=== PATIENT | female | born 2000 | race Caucasian/White ===

== ENCOUNTER 2022-07-27 10:49 | Inpatient (IN) ==
[2022-07-27] MEDS ORDERED: OXYTOCIN 30 UNITS/500 ML BAG IV PRN ×2 (12:35)
[2022-07-27] MEDS ORDERED: LIDOCAINE 1% LOCAL 20 ML VIAL INFIL PRN (12:35)
--- NOTE | 2022-07-27 12:41 | History & Physical Report ---
Date of Service July 27, 2022 Assessment & Plan (1) Post term over 40 weeks: (2) Encounter for induction of labor: Plan Admit, iv, labs. begin pitocin induction/arom. ? if arom completed, will monitor. fhts categ 1. pt denies ?s, ready to proceed. Admission and Anticipated Discharge Date Admission Date: July 27, 2022 History of Present Illness Chief Complaint: planned induction Primary Care Provider: Gricelda Geiger, DO 22yo at 40 6/7 wks presents to L&D for above cc. She denies rom, vb. +FM. No regular ctx. PNC c/b 1. Obesity 2. +factor V leiden heterozygous, never had dvt, saw hematology, advised lovenox in but cessated on her own, plan pp lovenox with c/s or any complicated vaginal delivery per hematology f/u note PNL rh pos, ri, gbs neg. OBH: g1 GYNH: nl stds Allergies Allergy/AdvReac Type Severity Reaction Status Date / Time nickel AdvReac Intermediate Rash Verified 07/26/22 14:53 Home Medications Medication Instructions Recorded Confirmed Type No Known Home Medications 06/29/22 07/26/22 History Patient History Medical History (Updated 07/27/22 @ 13:25 by Setphania Naranjo RN) Factor 5 Leiden mutation, heterozygous No chronic problems Scoliosis Varicella vaccination Surgical History History of removal of cyst L hip (topically) Family History Mother Factor V Leiden Sister Factor V Leiden Grandmother (Maternal) Factor V Leiden Other No significant family history Denies family history of Ovarian cancer Breast cancer Colorectal cancer Social History Smoking Status: Never smoker Hx Alcohol Use: No Hx Substance Use: No marital status: Single marital status details: genesis Sargent (23) [phone] Current Living Situation: Significant Other Current Living Situation Comment: lives with fob, dogs, cat-fob changing litter current occupational status: employed current occupation: [employer] Feels Safe at Home: Yes Review of Systems as per Subjective / HPI Physical Exam Constitutional: WD/WN, vitals as above Respiratory: normal respiratory effort, lungs clear to auscultation Cardiovascular: Rate/Rhythm: regular rate and regular rhythm Gastrointestinal (Abdomen): soft gravid nt Musculoskeletal: no edema nontender calves Neurologic: grossly normal Psychiatric: A+Ox3, euthymic affect Genitourinary: OB Exam Abdomen: + vertex and + estimated weight (8-9#) Manual OB Exam: + cervical dilation 3 cm, + cervical effacement 90%, + station -2 (mid, soft) and + amniotic fluid (attempted arom x 2, ? result) OB Exam Monitor Tracing: + external FHT monitor used, + external uterine monitor used, + category I and + normal FHT variability Coding Level of Care Code None Diagnoses Post term over 40 weeks O48.0 Encounter for induction of labor Z34.90
[2022-07-27] MEDS: LACTATED RINGER'S 1,000 ML IV PRN ×3 (13:12→22:00)
[2022-07-27 13:17] LABS: Hemoglobin 12.4 g/dl (12.0-16.0); Mean Corpuscular Hemoglobin 28.6 pg (25.0-34.0); Mean Corpuscular Hgb Conc 33.5 g/dL (32.0-36.0); Mean Corpuscular Volume 85.3 fL (80.0-100.0); Mean Platelet Volume 11.6 fL (9.4-12.3); Platelet Count 254 K/uL (130-400); RDW Coefficient of Variation 13.2 % (11.5-14.5); RDW Standard Deviation 41.3 fL (36.4-46.3); Red Blood Count 4.34 M/uL (3.93-5.22); White Blood Count 11.95 K/ul (4.8-10.8)
[2022-07-27] MEDS ORDERED: ePHEDrine sulfate 50 MG/ML AMP ONE (16:48)
[2022-07-27] MEDS ORDERED: LIDOCAINE 2%/EPINEPHRINE 1:200,000 20 ML SDV ONE (16:49)
[2022-07-27] MEDS ORDERED: BUPIVACAINE 0.25% 30 ML VIAL ONE (16:49)
[2022-07-27] MEDS ORDERED: fentaNYL citrate 100 MCG/2 ML VIAL ONE (16:49)
[2022-07-27] MEDS ORDERED: SODIUM CHLORIDE 0.9% INJ 10 ML VIAL ONE (16:49)
[2022-07-27] MEDS ORDERED: fentaNYL 2MCG/ML ROPIVACAINE 1.25MG/ML 100 ML BAG EPI ONE (16:50)
--- NOTE | 2022-07-27 17:05 | Anesthesiology Consultation ---
Date of Service July 27, 2022 Assessment & Plan Chart Review Chart Review: Acceptable Risk for Labor Epidural Consults Requested none ASA ASA3 Proposed Anesthesia Anesthesia Type: Labor Epidural Risk / Benefits Reviewed With: PT / POA / Parent / Guardian, Accepts Plan and Informed Consent Obtained History Height/Weight Height: 5 ft 5 in Weight: 139.717 kg Allergies Allergy/AdvReac Type Severity Reaction Status Date / Time nickel AdvReac Intermediate Rash Verified 07/26/22 14:53 Medications Home Medications Medication Instructions Recorded Confirmed Last Taken No Known Home Medications 06/29/22 07/26/22 Unknown Active Medications Generic Name Dose Route Start Last Admin Trade Name Freq PRN Reason Stop Dose Admin Oxytocin 30 units in 500 mls @ 7 mls/hr 07/27/22 12:35 07/27/22 16:00 Pitocin IV 07/29/22 12:34 0.54 units/hr .Q24H PRN 9 mls/hr Labor Induction/Augmentation Titration Protocol 0.42 UNITS/HR Lactated Ringer's 1,000 mls @ 125 mls/hr 07/27/22 12:35 07/27/22 16:52 Lr IV 07/29/22 12:34 125 mls/hr .Q8H PRN Administration L&D Protocol Protocol Past Medical History Medical History Factor 5 Leiden mutation, heterozygous No chronic problems Scoliosis Varicella vaccination Exercise / Class Metabolic Activity II 4-5 Yardwork/Stairs/Walk up hill Past Family History Family History Mother Factor V Leiden Sister Factor V Leiden Grandmother (Maternal) Factor V Leiden Other No significant family history Denies family history of Ovarian cancer Breast cancer Colorectal cancer Past Surgical History Surgical History History of removal of cyst L hip (topically) Past Anesthesia History No Hx of Anesthesia Complications and No Family Hx of Anesthesia Complications History of PONV No Hx of PONV and No Hx of Motion Sickness Social History Smoking Status: Former smoker tobacco type: e-cigarettes Hx Alcohol Use: No Hx Substance Use: No substance use type: does not use Physical Exam Vital Signs Last Vital Signs Temp 98.1 F 07/27/22 15:29 Pulse 94 H 12/21/22 17:01 Resp 22 07/27/22 13:28 BP 123/58 L 07/27/22 15:31 Pulse Ox 98 07/27/22 17:01 ENMT Mouth: no dentition abnormality Thyromental Distance: > or= 3.5 Finger Breadths Mallampati Class: II Neck normal visual inspection Respiratory normal respiratory effort Auscultation: lungs clear to auscultation bilaterally Cardiovascular Rate/Rhythm: regular rate and regular rhythm Testing Laboratory Results 07/27/22 12:57
[2022-07-27] MEDS ORDERED: NALOXONE HCL 1 MG in SODIUM CHLORIDE 0.9% 1000ML 1,000 ML IV PRN (17:28)
[2022-07-27] MEDS ORDERED: ePHEDrine sulfate 50 MG/ML AMP IV PRN (17:28)
[2022-07-27] MEDS ORDERED: NALOXONE HCL 0.4 MG/1 ML VIAL/CARP IV PRN (17:28)
[2022-07-27] MEDS ORDERED: diphenhydrAMINE 50 MG/ML VIAL IV PRN (17:28)
[2022-07-27] MEDS ORDERED: ONDANSETRON INJ 2 MG/ML 2 ML VIAL IV PRN (17:28)
[2022-07-27] MEDS ORDERED: NALBUPHINE HCL INJ 10 MG/ML AMP IV PRN (17:28)
[2022-07-27] MEDS ORDERED: fentaNYL 2MCG/ML ROPIVACAINE 1.25MG/ML 100 ML BAG EPI PRN (17:28)
--- NOTE | 2022-07-27 18:52 | Labor Progress Brief Note ---
Date of Service July 27, 2022 Subjective pt comfortable with epidural Assessment & Plan (1) Encounter for induction of labor: (2) Obesity affecting : (3) Post term over 40 weeks: Plan continue with pitcoin to keep labor pattern regular. fhts categ 1. Admission and Anticipated Discharge Date Admission Date: July 27, 2022 Physical Exam Genitourinary: Manual OB Exam: + cervical dilation (3-4cm per nurse) OB Exa m Monitor Tracing: + external FHT monitor used, + external uterine monitor used (Q2), + category I and + normal FHT variability Results & Data ([facility]) Vital Signs (Past 12 Hours) Vital Signs Temp Pulse Resp BP Pulse Ox 07/27/22 13:28 98.2 F 108 H 22 123/78 07/27/22 18:46 96 07/27/22 18:46 68 07/27/22 18:41 96 07/27/22 18:41 73 07/27/22 18:39 79 07/27/22 18:39 126/72 07/27/22 18:36 97 07/27/22 18:36 88 07/27/22 18:31 98 07/27/22 18:31 75 07/27/22 18:26 96 07/27/22 18:26 69 07/27/22 18:24 62 07/27/22 18:24 142/89 H 07/27/22 18:21 97 07/27/22 18:21 68 07/27/22 18:16 97 07/27/22 18:16 77 07/27/22 18:11 97 07/27/22 18:11 73 07/27/22 18:09 67 07/27/22 18:09 152/90 H 07/27/22 18:06 97 07/27/22 18:06 67 07/27/22 18:01 97 07/27/22 18:01 77 07/27/22 17:56 98 07/27/22 17:56 76 07/27/22 17:55 80 07/27/22 17:55 143/89 H 07/27/22 17:51 97 07/27/22 17:51 71 07/27/22 17:49 68 07/27/22 17:49 139/80 07/27/22 17:46 97 07/27/22 17:46 67 07/27/22 17:43 74 07/27/22 17:43 143/79 H 07/27/22 17:41 97 07/27/22 17:41 77 07/27/22 17:39 71 07/27/22 17:39 141/79 H 07/27/22 17:36 99 07/27/22 17:36 72 07/27/22 17:31 98 07/27/22 17:31 73 07/27/22 17:32 76 07/27/22 17:32 144/74 H 07/27/22 17:30 82 07/27/22 17:30 148/79 H 07/27/22 17:28 74 07/27/22 17:28 139/77 07/27/22 17:26 98 07/27/22 17:26 73 07/27/22 17:26 67 07/27/22 17:26 149/82 H 07/27/22 17:21 98 07/27/22 17:21 88 07/27/22 17:22 96 H 07/27/22 17:22 147/90 H 07/27/22 17:20 78 07/27/22 17:20 145/85 H 07/27/22 17:11 99 07/27/22 17:11 83 07/27/22 17:06 98 07/27/22 17:06 83 07/27/22 17:01 98 07/27/22 17:01 94 H 07/27/22 15:31 77 07/27/22 15:31 123/58 L 07/27/22 15:29 98.1 F 07/27/22 13:51 97 07/27/22 13:52 94 07/27/22 13:51 83 07/27/22 13:52 80 07/27/22 13:46 96 07/27/22 13:46 82 07/27/22 13:41 95 07/27/22 13:42 93 07/27/22 13:41 81 07/27/22 13:42 80 07/27/22 12:41 98.2 F 108 H 22 123/78 Coding Level of Care Code None Diagnoses Encounter for induction of labor Z34.90 Obesity affecting O99.210 Post term over 40 weeks O48.0
[2022-07-27] MEDS ORDERED: SODIUM CHLORIDE 0.9% 250 ML IV PRN (18:55)
[2022-07-28] MEDS ORDERED: fentaNYL citrate 100 MCG/2 ML VIAL INT SPINAL STA (00:43)
[2022-07-28] MEDS ORDERED: fentaNYL citrate 100 MCG/2 ML VIAL ONE (00:49)
[2022-07-28] MEDS ORDERED: BUPIVACAINE 0.25% 30 ML VIAL ONE (00:50)
--- NOTE | 2022-07-28 01:06 | Communication Note ---
Date of Service: July 28, 2022 The patient stated having increased labor pains. I bolus the epidural with 50mcg fentanyl and 4 mL of 0.25% bupivacaine. The patient stated that her labor pains were improved. VSS throughout.
[2022-07-28] MEDS ORDERED: miSOPROStoL 200 MCG TAB ONE (06:18)
--- NOTE | 2022-07-28 06:19 | Delivery Summary ---
Vaginal Delivery Summary Date of Service July 28, 2022 Vaginal Delivery Summary and 2nd Degree LAC The patient dilated to complete and pushed to deliver a viable male infant Apgars 8 and 8 via over 2nd degree perineal laceration to anterior shoulder. Mouth and nose bulb suctioned at perineum. Loose nuchal x 1 reduced. Remaining shoulders and body delivered with ease. Infant was vigorous and crying at . Cord clamped at 30 seconds of life and to maternal abdomen where the cord was then doubly clamped and cut. Placenta delivered spontaneously and intact, three-vessel cord. Hemostasis achieved with dilute pitocin and uterine massage and drainage of the bladder for approximately 300 cc under sterile conditions and rectal cytotec. More significant bleeding noted from vaginal lacerations in a 'V' shape that was constrolled with sutures of 3-0 vicryl. Remainder of laceration repaired in routine fashion with 3-0 vicryl. Cervix and sulci intact. EBL 600 cc. Mother and baby stable in recovery. Will recommend pp lovenox to patient due to risk factors. [facility] Vaginal Delivery Charge Delivery Type Details: and 2nd Degree LAC
--- NOTE | 2022-07-28 07:17 | Communication Note ---
Date of Service: July 28, 2022 spoke with pharmacist who recommends holding dose until 12hr from removal of epidural catheter. ordered for tonight at 8pm to start. pt aware.
[2022-07-28] MEDS ORDERED: BENZOCAINE 20% AER SPR 82.5 GM CAN EXT PRN (07:23)
[2022-07-28] MEDS ORDERED: oxyCODONE/ACETAMINOPHEN 5mg/325mg TAB PO PRN (07:23)
[2022-07-28] MEDS ORDERED: DIPHTHERIA/TETANUS/PERTUSSIS 0.5 ML SYR/VIAL IM ONE (07:23)
[2022-07-28] MEDS ORDERED: OXYTOCIN 30 UNITS/500 ML BAG IV PRN (07:23)
[2022-07-28] MEDS ORDERED: OXYTOCIN 20 UNITS in LACTATED RINGER'S 1,000 ML IV SCH (07:23)
[2022-07-28] MEDS ORDERED: HYDROCORTISONE ACETATE 25 MG SUPP PR PRN (07:23)
[2022-07-28] MEDS ORDERED: miSOPROStoL 200 MCG TAB PR ONE (07:23)
[2022-07-28] MEDS ORDERED: bisacodyL 10 MG SUPP PR PRN (07:23)
--- NOTE | 2022-07-28 07:34 | Anesthesia Procedure Note ---
Date of Service July 28, 2022 Anesthesia Post Epidural Note Vital Signs Vital Signs: Temp Pulse Resp BP Pulse Ox 37.1 C 131 H 18 117/68 92 07/28/22 06:30 07/28/22 07:31 07/28/22 06:45 07/28/22 07:31 07/28/22 05:40 Notes Mental Status: alert / awake / arousable Nausea / Vomiting: adequately controlled Pain: adequately controlled Airway Patency, RR, SpO2: stable & adequate BP & HR: stable & adequate Hydration State: stable & adequate Neuraxial Anesthesia: was administered and sensory block is resolving Anesthetic Complications: no major complications apparent and Pt Satisfied with anesthetic care Epidural: Removed without complications and With tip intact
[2022-07-28] MEDS: IBUPROFEN 600 MG TAB PO PRN ×3 (09:06→20:26)
[2022-07-28] MEDS: PRENATAL VITAMIN 1 TAB PO SCH (09:06)
[2022-07-28] MEDS: DOCUSATE SODIUM 100 MG CAP PO SCH ×2 (09:07→20:26)
[2022-07-28] MEDS ORDERED: SODIUM CHLORIDE 0.9% 250 ML IV PRN (09:40)
[2022-07-28] MEDS: ENOXAPARIN INJ 40 MG/0.4 ML SYR SQ SCH (20:23)
[2022-07-29] MEDS: IBUPROFEN 600 MG TAB PO PRN ×5 (03:07→23:49)
[2022-07-29] MEDS: ACETAMINOPHEN 325 MG TAB PO PRN (04:07)
--- NOTE | 2022-07-29 06:00 | Obstetrical Progress Note ---
Date of Service July 29, 2022 Assessment & Plan (1) care following vaginal delivery: (2) Factor V Leiden: Plan - Overall, feeling well and eating well today - feeding going well without concern - Urinating and passing gas appropriately - Ambulating well in room - Pain controlled w/ Ibuprofen - Hgb 7.2 on 07/29 (patient asymptomatic, follow) - Vitals stable and wnl - Factor 5 Leiden: Hematology recommending Lovenox PP - Routine PP care progressing well - Anticipate discharge tomorrow - Recommending f/u outpatient in 6 weeks Admission and Anticipated Discharge Date Admission Date: July 27, 2022 Supervising Physician Co-Signing Physician Notes Resident Physician Supervision Note: I was present with Dr. Dr. Lopez during the history and exam. I discussed the case with the resident and agree with the findings and plan as documented in the note. Any exceptions or clarifications are listed here: [None] Documented By: Juvenal Morales MD, FACOG Subjective Cal is a 22F who is PPD #1 following vaginal delivery at 40 6/7. She reports feeling well overall this morning. - Ambulation - well throughout room - Voiding/Romero - independent voids, no dysuria or pressure - Gas/Stool - passing gas, no bowel movement - Diet - regular, no nausea or emesis - Lochia - diminishing, light amount - Infant Feeding Type - breast feeding - Pain Level - 2/10, controlled with Ibuprofen Review of Systems - Denies fever, chills, sweats - Denies shortness of breath, difficulty breathing, chest pain, palpitations, chest pressure. - Denies breast pain. - Denies dysuria. - Denies headache or changes in vision. Physical Exam Physical Exam: General: Alert, oriented. No acute distress. Cardiac: RRR, normal S1/S2, no murmurs/rubs/gallops. Respiratory: Non-labored, CTAB, no wheezes/rales/rhonchi. Symmetric chest rise. Abdomen: Soft, nontender, nondistended. Bowel sounds present. Uterus: Uterine fundus firm, palpable 3 cm below umbilicus. Lower Extremities: No lower extremity edema or swelling. No deep calf pain. Harvey's negative bilaterally. Results & Data ([facility]) Vital Signs (Past 12 Hours) Vital Signs Temp Pulse Resp BP Pulse Ox O2 Del Method 07/29/22 03:57 36.8 C 82 16 96/67 L 96 Room Air 07/28/22 23:20 36.8 C 86 16 105/65 98 Room Air 07/28/22 20:15 36.8 C 93 H 20 108/62 99 Room Air Resident Activity Tracking Resident Involvement: Resident Care Provided Care Provided: OB Delivery
[2022-07-29 06:46] LABS: Hematocrit (blood only) 21.2 % (34.1-44.9); Hemoglobin 7.2 g/dl (12.0-16.0)
[2022-07-29] MEDS: PRENATAL VITAMIN 1 TAB PO SCH (08:28)
[2022-07-29] MEDS: DOCUSATE SODIUM 100 MG CAP PO SCH ×2 (08:28→20:55)
[2022-07-29] MEDS: ENOXAPARIN INJ 40 MG/0.4 ML SYR SQ SCH ×2 (09:47→16:35)
[2022-07-30 07:15] LABS: Hematocrit (blood only) 21.2 % (34.1-44.9)
--- NOTE | 2022-07-30 07:24 | Obstetrical Progress Note ---
Date of Service July 30, 2022 Assessment & Plan (1) care following vaginal delivery: (2) Factor V Leiden: Plan - Overall, feeling well and eating well today - Infant feeding going well without concern - Urinating and passing gas appropriately - Ambulating well in room - Pain controlled w/ Ibuprofen - Hgb 7.2 --> 7.0 tolerating well - Vitals stable and wnl - Factor 5 Leiden: Lovenox BID x6 weeks per heme, Rx sent, patient has been minimally compliant per report but encouraged to use Rx - Routine PP care progressing well - discharge today - Recommending f/u outpatient in 6 weeks Subjective Ambulation: ambulating normally Voiding: no voiding problems Passing Gas:: Yes Diet Tolerance:: regular diet Lochia:: Small Feeding Type:: bottle feeding Physical Exam Constitutional WD/WN, vitals as above Eyes PERRL, conjunctivae normal, anicteric sclerae Neck normal visual inspection Respiratory normal respiratory effort and able to speak in complete sentences; no respiratory distress and no labored breathing Cardiovascular Rate/Rhythm: regular rate and regular rhythm Extremities: no edema Chest (Breasts) Chest: normal inspection of chest Gastrointestinal (Abdomen) Inspection/Auscultation: abdomen normal to inspection Soft, postgravid Psychiatric A+Ox3, euthymic affect Genitourinary OB Exam Abdomen: + fundal height Fundus: + firm and + relation to umbilicus (fundus just below umbilicus); not tender Results & Data ([facility]) Vital Signs (Past 12 Hours) Vital Signs Temp Pulse Resp BP Pulse Ox O2 Del Method 07/29/22 23:30 98.6 F 93 H 18 99/63 L 97 Room Air
[2022-07-30] MEDS: IBUPROFEN 600 MG TAB PO PRN (07:28)
[2022-07-30] MEDS: DOCUSATE SODIUM 100 MG CAP PO SCH (07:28)
[2022-07-30] MEDS: PRENATAL VITAMIN 1 TAB PO SCH (07:28)
[2022-07-30] MEDS: ACETAMINOPHEN 325 MG TAB PO PRN (07:29)
[2022-07-30] MEDS: ENOXAPARIN INJ 40 MG/0.4 ML SYR SQ SCH (07:55)
== END 2022-07-30 10:40 | disposition home or self-care (01) | DRG 806 ==
LOC: 4S1 12:11 → 4E1 07-28 09:58
DX: O99.12 Other diseases of the blood and blood-forming organs and certain disorders involving the immune mechanism complicating childbirth; O48.0 Post-term pregnancy; Z3A.41 41 weeks gestation of pregnancy; O70.1 Second degree perineal laceration during delivery; Z37.0 Single live birth; O99.214 Obesity complicating childbirth; D68.2 Hereditary deficiency of other clotting factors; O69.81X0 Labor and delivery complicated by cord around neck, without compression, not applicable or unspecified

== ENCOUNTER 2024-01-16 16:57 | Inpatient (IN) ==
--- NOTE | 2024-01-16 18:03 | History & Physical Report ---
Date of Service January 16, 2024 Assessment & Plan (1) 36 weeks gestation of : (2) Obesity affecting : (3) Factor V Leiden: (4) Oligohydramnios: (5) Cerebral ventriculomegaly of fetus affecting care of mother: Plan Discussion held with patient about findings in office and guidelines for delivery regarding oligohydramnios, has range of 36 0/7 to 37 6/7 wks. Also new finding of dilated ventricle in brain of fetus. Spoke to lubrication worker peds and they do not feel concern for delivery locally with evaluation of as long as patient understands limits of care here locally and always risk for transfer. Then spoke to patient to let her know my plan to call MFM at [facility] and ask them about concerns re: ventriculomegaly and recs for delivery with her oligo at this ega. She expressed desire to deliver locally if deemed ok by mfm and very much aware of possible need for transfer of baby cannot be predicted. Spoke to Graciela Benitez MFM fellow at [facility] and reviewed all. She recommended I evaluate pt for PROM and agreed that even though could delay delivery due to oligo if desired, new onset of ventriculomegaly would make sense to plan induction now. MFM did not see any compelling reason for pt to be sent to [place] for delivery with understanding that baby may need transfer, unable to predict, all already d/w pt. PROM ruled out. GBS unknown and specimen obtained and will plan PCN now. Cervical balloon placed and will start pitocin and plan arom when tae ropriate. Patient and partner agree with all and all explained and desire to proceed with induction of labor here at [facility]. Admit orders placed, labs, iv, betamethasone now. Will allow dinner and then get pitocin started. Patient does agree with plan to use lovenox pp. History of Present Illness Chief Complaint: oligohydramnios, new onset unilateral ventriculomegaly Primary Care Provider: Gricelda Geiger, DO 23yo at 36 4/7wks ega presents to LD from office with oligohydramnios and new onset unilateral ventriculomegaly. She was on monitor for obesity and had reactive nst. She did have growth u/s today as well and efw>98% and right cerebral ventricle noted to be 14mm. She has had serial growth u/s and not noted previously. Her is complicated by 1. Factor V Leiden heterozygote, saw m gmg and did not plan lovenox during but plans for 6wk pp 2. Obesity, getting nsts, growth us and plan for delivery by due date. 3. New onset oligohydramnios 1.7cm dvp 4. New onset right ventriculomegaly PNL rhpos, ri, gbs not done OBH: x 1 GYNH: nl paps no stds Allergies Allergy/AdvReac Type Severity Reaction Status Date / Time latex Allergy Mild Itching Verified 01/16/24 17:25 nickel AdvReac Intermediate Rash Verified 01/16/24 15:34 Home Medications Medication Instructions Recorded Confirmed Type vit 168-iron 27 mg-folic 1 cap PO DAILY 06/20/23 01/16/24 History acid 800 mcg-omega3 235 mg capsule (One-A-Day -1) Patient History Medical History (Updated 01/16/24 @ 18:[address] MD, FACOG) (spontaneous vaginal delivery) 2021 Factor 5 Leiden mutation, heterozygous Scoliosis Post term over 40 weeks Varicella vaccination No chronic problems Surgical History History of removal of cyst L hip (topically) Family History Mother Factor V Leiden Sister Factor V Leiden Grandmother (Maternal) Factor V Leiden Other No significant family history Denies family history of Ovarian cancer Breast cancer Colorectal cancer Social History (Updated 06/20/23 @ 10:55 by Marcela Ramirez) Smoking Status: Never smoker Do You Dip or Chew Tobacco: No; Hx Alcohol Use: No Hx Substance Use: No Preferred Language: [place] Citizen Communication Ability: Effective Ob Nurse Required: No Beliefs That Will Affect Care: None marital status: Single marital status details: genesis Sargent (24) [phone] Current Living Situation: Family and Significant Other Current Living Situation Comment: lives with fob, child, dogs, cat-fob changing litter current occupational status: employed current occupation: day care center Other Information That Helps Us Care for You: No Feels Safe at Home: Yes Safety Concerns: Feels Safe At This Time Assistive Devices: None Review of Systems as per Subjective / HPI Physical Exam Constitutional: WD/WN, vitals as above Respiratory: normal respiratory effort, lungs clear to auscultation Cardiovascular: Rate/Rhythm: regular rate and regular rhythm Gastrointestinal (Abdomen): soft gravid nt obese EFW 7-8# Musculoskeletal: no edema nontender calves Neurologic: grossly normal Psychiatric: A+Ox3, euthymic affect Genitourinary: Manual OB Exam: + cervical dilation (1+), + cervical effacement (75%) and + station -2 OB Exam Monitor Tracing: + external FHT monitor used, + external uterine monitor used (irreg), + category I and + normal FHT variability PROCEDURE: sse no pooling, nitrazine neg, ferning neg, cx visualized, grasped on ant lip with ring forcep, watkins through os and balloon inflated with 40cc sterile water. Spec removed, watkins taped to leg. pt zoey well. Results & Data Vital Signs (Past 12 Hours) Vital Signs Temp Pulse Resp BP 01/16/24 17:34 112 H 106/59 L 01/16/24 17:05 98.6 F 18 Coding Level of Care Code None Diagnoses 36 weeks gestation of Z3A.36 Obesity affecting O99.210 Factor V Leiden D68.51 Oligohydramnios O41.00X0 Cerebral ventriculomegaly of fetus affecting care of mother O35.09X0 CPT Codes Misx Procedure Codes - 01720 Placement of cervical dilator: 50608 Placement of cervical dilator ([id number])
[2024-01-16] MEDS ORDERED: OXYTOCIN 30 UNITS/NSS 30 UNITS/500 ML BAG IV PRN (18:25)
[2024-01-16] MEDS ORDERED: LIDOCAINE 1% LOCAL 20 ML VIAL INFIL PRN (18:25)
[2024-01-16] MEDS: BETAMETH SOD PHOS/ACETATE IA 6 MG/ML IM STA (18:49)
[2024-01-16 18:50] LABS: Hematocrit (blood only) 33.6 % (37.0-47.0); Hemoglobin 11.2 g/dl (12.0-16.0); Mean Corpuscular Hemoglobin 26.4 pg (25.0-34.0); Mean Corpuscular Hgb Conc 33.3 g/dL (32.0-36.0); Mean Corpuscular Volume 79.2 fL (80.0-100.0); Mean Platelet Volume 11.5 fL (9.4-12.4); Platelet Count 290 K/uL (130-400); RDW Coefficient of Variation 13.9 % (11.5-14.5); Red Blood Count 4.24 M/uL (4.20-5.40); White Blood Count 12.38 K/ul (4.8-10.8)
[2024-01-16] MEDS: LACTATED RINGER'S 1,000 ML IV PRN (19:34)
[2024-01-16] MEDS: PENICILLIN GK 6 MU in DEXTROSE 5% 250 ML IV STA (19:34)
[2024-01-16] MEDS: OXYTOCIN 30 UNITS/NSS 30 UNITS/500 ML BAG IV PRN (19:35)
[2024-01-16] MEDS: LIDOCAINE 2%/EPINEPHRINE 1:200,000 20 ML PF ONE (23:11)
[2024-01-16] MEDS: BUPIVACAINE 0.25% PF 30 ML VIAL ONE (23:11)
[2024-01-16] MEDS: fentANYL 2 MCG/ML BUPIVacaine 0.125%-NSS 100ML BAG ONE (23:12)
[2024-01-16] MEDS: PENICILLIN GK 3 MU in DEXTROSE 5% 100 ML IV PRN (23:17)
[2024-01-16] MEDS: fentaNYL citrate PF 100 MCG/2 ML VIAL ONE (23:18)
[2024-01-16] MEDS: ePHEDrine sulfate 50 MG/ML AMP ONE (23:18)
[2024-01-16] MEDS: SODIUM CHLORIDE 0.9% PF INJ 10 ML VIAL ONE (23:18)
--- NOTE | 2024-01-16 23:19 | Anesthesiology Consultation ---
Date of Service January 16, 2024 Assessment & Plan Chart Review Chart Review: Acceptable Risk for Labor Epidural Consults Requested none History Height/Weight Height: 5 ft 5 in Weight: 144.9 kg Allergies Allergy/AdvReac Type Severity Reaction Status Date / Time latex Allergy Mild Itching Verified 01/16/24 17:25 nickel AdvReac Intermediate Rash Verified 01/16/24 15:34 Medications Home Medications Medication Instructions Recorded Confirmed Last Taken vit 168-iron 27 mg-folic 1 cap PO DAILY 06/20/23 01/16/24 01/15/24 08:00 acid 800 mcg-omega3 235 mg capsule (One-A-Day -1) Active Medications Generic Name Dose Route Start Last Admin Trade Name Freq PRN Reason Stop Dose Admin Lactated Ringer's 1,000 mls @ 125 mls/hr 01/16/24 18:25 01/16/24 22:59 Lr IV 01/18/24 18:24 125 mls/hr .Q8H PRN Administration L&D Protocol Protocol Penicillin G Potassium 3 mu/ 106 mls @ 100 mls/hr 01/16/24 21:25 01/16/24 23:17 Dextrose IV 01/26/24 21:24 100 mls/hr Q4H PRN Administration GBS(+) Until Delivery Oxytocin 30 units in 500 mls @ 3 mls/hr 01/16/24 18:25 01/16/24 20:30 Pitocin 30 Units/Nss IV 01/18/24 18:24 0.18 units/hr .Q24H PRN 3 mls/hr Labor Induction/Augmentation Titration Protocol 0.18 UNITS/HR Past Medical History Medical History (Updated 01/16/24 @ 18:[address] MD, FACOG) (spontaneous vaginal delivery) 2021 Factor 5 Leiden mutation, heterozygous Scoliosis Post term over 40 weeks Varicella vaccination No chronic problems Past Family History Family History Mother Factor V Leiden Sister Factor V Leiden Grandmother (Maternal) Factor V Leiden Other No significant family history Denies family history of Ovarian cancer Breast cancer Colorectal cancer Past Surgical History Surgical History History of removal of cyst L hip (topically) Social History Smoking Status: Never smoker tobacco type: e-cigarettes Do You Dip or Chew Tobacco: No Hx Alcohol Use: No Hx Substance Use: No substance use type: does not use Physical Exam Vital Signs Last Vital Signs Temp 36.9 C 01/16/24 19:10 Pulse 110 H 01/16/24 23:19 Resp 18 01/16/24 19:10 BP 134/74 01/16/24 23:19 Pulse Ox 96 01/16/24 23:16 Testing Laboratory Results 01/16/24 18:35 Blood Type A Positive 01/16/24 18:35 Antibody Screen NEGATIVE 01/16/24 18:35
[2024-01-16] MEDS ORDERED: ROPIVACAINE 0.5% PF 5 MG/ML 20 ML VIAL EPI PRN (23:21)
[2024-01-16] MEDS ORDERED: NALBUPHINE HCL 5 MG in SYRINGE 0 ML IV PRN (23:21)
[2024-01-16] MEDS ORDERED: LIDOCAINE 2% MPF LOCAL 5 ML VIAL EPI PRN (23:21)
[2024-01-16] MEDS ORDERED: NALOXONE HCL 0.4 MG/1 ML VIAL/CARP IV PRN (23:21)
[2024-01-16] MEDS ORDERED: BUPIVACAINE 0.25% PF 30 ML VIAL EPI PRN (23:21)
[2024-01-16] MEDS ORDERED: diphenhydrAMINE 50 MG/ML VIAL IV PRN (23:21)
[2024-01-16] MEDS ORDERED: SODIUM CHLORIDE 0.9% PF INJ 10 ML VIAL EPI PRN (23:21)
[2024-01-16] MEDS ORDERED: fentaNYL citrate PF 100 MCG/2 ML VIAL EPI PRN (23:21)
[2024-01-16] MEDS ORDERED: fentANYL 2 MCG/ML BUPIVacaine 0.125%-NSS 100ML BAG EPI PRN (23:21)
[2024-01-16] MEDS ORDERED: ePHEDrine sulfate 50 MG/ML AMP IV PRN (23:21)
[2024-01-16] MEDS ORDERED: NALOXONE HCL 1 MG in SODIUM CHLORIDE 0.9% 1,000 ML IV PRN (23:21)
--- NOTE | 2024-01-16 23:46 | Labor Progress Brief Note ---
Date of Service January 16, 2024 Subjective comfortable with epidural Assessment & Plan (1) 36 weeks gestation of : (2) Cerebral ventriculomegaly of fetus affecting care of mother: (3) Oligohydramnios: (4) Obesity affecting : (5) Factor V Leiden: Plan will see how arom helps labor pattern. will use iupc to guide pitocin. fhts categ 1, will bolus ivf, no elevated temp, baseline is ok at 145. Physical Exam Constitutional: WD/WN, vitals as above Genitourinary: Manual OB Exam: + cervical dilation 4 cm, + cervical effacement (75%), + station -2 and + amniotic fluid (arom) clear OB Exam Monitor Tracing: + external FHT monitor used, + external uterine monitor used (not traced well, pit at 5, iupc placed. ), + category I (baseline 145, accels) and + normal FHT variability Results & Data Vital Signs (Past 12 Hours) Vital Signs Temp Pulse Resp BP Pulse Ox 01/16/24 23:41 113 H 98 01/16/24 23:40 105 H 133/82 01/16/24 23:36 108 H 98 01/16/24 23:32 90 94 01/16/24 23:31 101 H 95 01/16/24 23:26 95 H 96 01/16/24 23:24 92 H 124/61 01/16/24 23:21 104 H 96 01/16/24 23:19 110 H 134/74 01/16/24 23:18 110 H 128/60 01/16/24 23:17 117 H 113/58 L 01/16/24 23:16 124 H 96 01/16/24 23:15 113 H 104/51 L 01/16/24 23:14 118 H 94/54 L 01/16/24 23:13 101 H 119/60 01/16/24 23:12 112 H 120/52 L 01/16/24 23:11 99 H 96 01/16/24 23:08 18 01/16/24 23:08 18 01/16/24 23:06 118 H 136/75 96 01/16/24 23:05 99 H 144/77 H 01/16/24 23:04 157/80 H 01/16/24 23:03 120 H 156/94 H 06/11/24 23:02 108 H 153/91 H 01/16/24 23:01 118 H 96 01/16/24 23:00 114 H 87 L 01/16/24 22:56 104 H 98 01/16/24 22:55 100 H 144/79 H 01/16/24 22:51 97 H 97 01/16/24 22:46 95 H 97 01/16/24 22:42 88 116/66 01/16/24 22:41 92 H 96 01/16/24 22:25 98 H 97 01/16/24 22:23 100 H 94 01/16/24 22:20 94 H 95 01/16/24 19:10 98.4 F 18 01/16/24 19:10 18 01/16/24 19:10 98.4 F 18 01/16/24 19:01 105 H 129/71 01/16/24 17:34 112 H 106/59 L 01/16/24 17:05 98.6 F 18 Coding Level of Care Code None Diagnoses 36 weeks gestation of Z3A.36 Cerebral ventriculomegaly of fetus affecting care of mother O35.09X0 Oligohydramnios O41.00X0 Obesity affecting O99.210 Factor V Leiden D68.51
[2024-01-17] MEDS: SODIUM CHLORIDE 0.9% PF INJ 10 ML VIAL EPI STA (00:02)
[2024-01-17] MEDS: BUPIVACAINE 0.25% PF 30 ML VIAL EPI STA (00:02)
[2024-01-17] MEDS: fentaNYL citrate PF 100 MCG/2 ML VIAL EPI STA (00:02)
[2024-01-17] MEDS: LIDOCAINE 2%/EPINEPHRINE 1:200,000 20 ML PF EPI STA (00:02)
[2024-01-17] MEDS: CALCIUM CARBONATE 500 MG CHEWABLE TAB PO PRN (00:03)
--- NOTE | 2024-01-17 06:28 | Labor Progress Brief Note ---
Date of Service January 17, 2024 Subjective coomfortable with epidural Assessment & Plan (1) Cerebral ventriculomegaly of fetus affecting care of mother: (2) 36 weeks gestation of : (3) Oligohydramnios: (4) Obesity affecting : (5) Factor V Leiden: Plan good cx change, c/w pit--keep mvu's inadeq c/w pcn for gbs unknown. Admission and Anticipated Discharge Date Admission Date: January 16, 2024 Physical Exam Constitutional: WD/WN, vitals as above Genitourinary: Manual OB Exam: + cervical dilation 7 cm, + cervical effacement 100% and + station 0 OB Exam Monitor Tracing: + external FHT monitor used, + intra-uterine pressure catheter used (mvu's currently likely <200, pit at 15. ), + category I and + normal FHT variability Results & Data Vital Signs (Past 12 Hours) Vital Signs Temp Pulse Resp BP Pulse Ox 01/17/24 06:21 92 H 94 01/17/24 06:16 80 94 01/17/24 06:11 76 96 01/17/24 06:10 71 109/58 L 01/17/24 06:06 71 94 01/17/24 06:01 62 95 01/17/24 05:56 76 95 01/17/24 05:54 74 109/59 L 01/17/24 05:51 77 95 01/17/24 05:46 66 94 01/17/24 05:41 94 01/17/24 05:41 71 01/17/24 05:41 71 108/56 L 01/17/24 05:36 74 95 01/17/24 05:31 81 94 01/17/24 05:26 88 96 01/17/24 05:24 70 100/56 L 01/17/24 05:21 83 96 01/17/24 05:16 71 93 01/17/24 05:11 65 93 01/17/24 05:10 64 103/56 L 01/17/24 05:06 65 94 01/17/24 05:01 80 92 01/17/24 05:00 18 01/17/24 05:00 98.1 F 18 01/17/24 04:56 65 93 01/17/24 04:55 74 115/60 01/17/24 04:51 76 96 01/17/24 04:46 70 94 01/17/24 04:41 83 95 01/17/24 04:40 78 109/55 L 01/17/24 04:36 68 94 01/17/24 04:31 75 95 01/17/24 04:26 78 93 01/17/24 04:24 69 99/47 L 01/17/24 04:21 63 93 01/17/24 04:16 71 93 01/17/24 04:11 66 93 01/17/24 04:10 73 100/49 L 01/17/24 04:06 75 93 01/17/24 04:01 73 94 01/17/24 03:56 70 95 01/17/24 03:54 63 99/49 L 01/17/24 03:51 67 94 01/17/24 03:46 68 95 01/17/24 03:41 67 94 01/17/24 03:39 70 99/53 L 01/17/24 03:36 84 95 01/17/24 03:31 71 94 01/17/24 03:26 65 94 01/17/24 03:25 68 100/52 L 01/17/24 03:21 71 93 01/17/24 03:16 70 94 01/17/24 03:11 73 94 01/17/24 03:09 75 107/51 L 01/17/24 03:06 74 94 01/17/24 03:01 78 96 01/17/24 03:00 18 01/17/24 03:00 98.1 F 18 01/17/24 02:56 75 96 01/17/24 02:55 80 109/54 L 01/17/24 02:51 78 96 01/17/24 02:46 74 95 01/17/24 02:41 83 97 01/17/24 02:40 78 114/57 L 01/17/24 02:36 82 96 01/17/24 02:31 81 95 01/17/24 02:26 93 H 96 01/17/24 02:24 83 109/58 L 01/17/24 02:21 77 95 01/17/24 02:16 87 96 01/17/24 02:11 73 96 01/17/24 02:10 86 120/57 L 01/17/24 02:06 92 H 96 01/17/24 02:01 88 96 01/17/24 01:56 75 95 01/17/24 01:54 99 H 83 L 01/17/24 01:51 106 H 97 01/17/24 01:46 83 93 01/17/24 01:41 78 92 01/17/24 01:40 84 113/59 L 01/17/24 01:36 84 92 01/17/24 01:31 82 92 01/17/24 01:26 75 91 01/17/24 01:24 84 95/50 L 01/17/24 01:21 90 92 01/17/24 01:16 93 H 92 01/17/24 01:11 95 H 92 01/17/24 01:09 95 H 94/50 L 01/17/24 01:06 90 93 01/17/24 01:01 93 H 93 01/17/24 00:56 94 H 93 01/17/24 00:54 110 H 107/55 L 01/17/24 00:51 88 94 01/17/24 00:46 90 94 01/17/24 00:41 87 94 01/17/24 00:39 84 114/55 L 01/17/24 00:36 99 H 98 01/17/24 00:33 93 H 94 01/17/24 00:31 93 H 97 01/17/24 00:26 99 H 97 01/17/24 00:25 107 H 136/64 01/17/24 00:21 85 95 01/17/24 00:16 90 95 01/17/24 00:13 100 H 105/51 L 01/17/24 00:11 94 H 96 01/17/24 00:06 93 H 96 01/17/24 00:01 100 H 96 01/17/24 00:00 18 01/17/24 00:00 18 01/16/24 23:56 98 H 96 01/16/24 23:55 102 H 122/71 01/16/24 23:51 95 H 97 01/16/24 23:46 91 H 96 01/16/24 23:41 113 H 98 01/16/24 23:40 105 H 133/82 01/16/24 23:38 18 01/16/24 23:38 98.2 F 18 01/16/24 23:36 108 H 98 01/16/24 23:32 90 94 06/11/24 23:31 101 H 95 01/16/24 23:26 95 H 96 01/16/24 23:24 92 H 124/61 01/16/24 23:21 104 H 96 01/16/24 23:19 110 H 134/74 01/16/24 23:18 110 H 128/60 01/16/24 23:17 117 H 113/58 L 01/16/24 23:16 124 H 96 01/16/24 23:15 113 H 104/51 L 01/16/24 23:14 118 H 94/54 L 01/16/24 23:13 101 H 119/60 01/16/24 23:12 112 H 120/52 L 01/16/24 23:11 99 H 96 01/16/24 23:08 18 01/16/24 23:08 18 01/16/24 23:06 118 H 136/75 96 01/16/24 23:05 99 H 144/77 H 01/16/24 23:04 157/80 H 01/16/24 23:03 120 H 156/94 H 01/16/24 23:02 108 H 153/91 H 01/16/24 23:01 118 H 96 01/16/24 23:00 114 H 87 L 01/16/24 22:56 104 H 98 01/16/24 22:55 100 H 144/79 H 01/16/24 22:51 97 H 97 01/16/24 22:46 95 H 97 01/16/24 22:42 88 116/66 01/16/24 22:41 92 H 96 01/16/24 22:25 98 H 97 01/16/24 22:23 100 H 94 01/16/24 22:20 94 H 95 01/16/24 19:10 98.4 F 18 01/16/24 19:10 18 01/16/24 19:10 98.4 F 18 01/16/24 19:01 105 H 129/71 Coding Level of Care Code None Diagnoses Cerebral ventriculomegaly of fetus affecting care of mother O35.09X0 36 weeks gestation of Z3A.36 Oligohydramnios O41.00X0 Obesity affecting O99.210 Factor V Leiden D68.51
[2024-01-17] MEDS: miSOPROStoL 200 MCG TAB ONE (07:35)
--- NOTE | 2024-01-17 07:44 | Delivery Summary ---
Vaginal Delivery Summary Date of Service January 17, 2024 Vaginal Delivery Summary and 2nd Degree LAC The patient dilated to complete and pushed to deliver a viable female infant Apgars 8 and 8 via over 2nd degree perineal laceration. Mouth and nose bulb suctioned at perineum. Shoulders and body delivered with ease. Infant was vigorous and crying at . Cord clamped at 30 seconds of life and infant to maternal abdomen where the cord was then doubly clamped and cut. Placenta delivered spontaneously and intact, three-vessel cord. Hemostasis achieved with dilute pitocin and uterine massage. Cervix and sulci intact. Laceration repaired in usual fashion in layers with 3-0 vicryl. QBL 175 cc. Mother and baby stable in recovery. [facility] Vaginal Delivery Charge Delivery Type Details: and 2nd Degree LAC
[2024-01-17] MEDS: OXYTOCIN 30 UNITS/NSS 30 UNITS/500 ML BAG IV PRN (08:10)
[2024-01-17] MEDS ORDERED: HYDROCORTISONE ACETATE 25 MG SUPP PR PRN (08:28)
[2024-01-17] MEDS ORDERED: oxyCODONE/ACETAMINOPHEN 5mg/325mg TAB PO PRN (08:28)
[2024-01-17] MEDS ORDERED: bisacodyL 10 MG SUPP PR PRN (08:28)
[2024-01-17] MEDS: OXYTOCIN 20 UNITS/LR 1,002 ML IV SCH (08:40)
[2024-01-17] MEDS: IBUPROFEN 600 MG TAB PO PRN (09:02)
[2024-01-17] MEDS: PRENATAL VITAMIN 1 TAB PO SCH (09:02)
[2024-01-17] MEDS: DOCUSATE SODIUM 100 MG CAP PO SCH (09:02)
--- NOTE | 2024-01-17 09:40 | Anesthesia Procedure Note ---
Date of Service January 17, 2024 Anesthesia Post Epidural Note Vital Signs Vital Signs: Temp Pulse Resp BP Pulse Ox 36.7 C 85 18 131/81 99 01/17/24 05:00 01/17/24 09:42 01/17/24 05:00 01/17/24 09:42 01/17/24 07:26 Pain Intensity Lower Perineal: Pain Intensity: 9 Notes Mental Status: alert / awake / arousable and participated in evaluation Nausea / Vomiting: adequately controlled Pain: adequately controlled Airway Patency, RR, SpO2: stable & adequate BP & HR: stable & adequate Hydration State: stable & adequate Neuraxial Anesthesia: was administered and sensory block is resolving Anesthetic Complications: no major complications apparent Epidural: Removed without complications and With tip intact
[2024-01-17] MEDS: ACETAMINOPHEN 325 MG TAB PO PRN (11:45)
[2024-01-17] MEDS: DIPHTHER/TETAN/PERTUS Vaccine (Tdap, Adol/Adult) 0.5mL IM ONE (11:51)
[2024-01-17] MEDS: BENZOCAINE 20% SPRY 85 APPLN/85 GM CAN EXT PRN (16:16)
== END 2024-01-17 18:20 | disposition home or self-care (01) | DRG 806 ==
LOC: OPB 16:57 → 4S1 16:59 → 4E2 01-17 10:20